=== PATIENT | male | born 1935 | race Caucasian/White ===

== ENCOUNTER → 2016-05-25 | Outpatient (CLI) | payer OTHER, MEDICARE ==
[~2016-05-25] MED LIST: CARB10TA PO; CMD5 PO; CYAN10002 PO; ISOS30TA35 PO; LISI-461 PO; LVNIS80 SQ; METO25TA56 PO; PRAV20TA PO
[2016-05-25 10:34] LABS: INR 2.2 (0.9-1.1)
== END | disposition home or self-care (01) ==
LOC: C.LABSPEC 09:59
PROVIDERS: ATTEND Internal Medicine Cardiovascular Disease
DX: I82.409 Acute embolism and thrombosis of unspecified deep veins of unspecified lower extremity (principal)

== ENCOUNTER → 2016-06-23 | Outpatient (CLI) | payer OTHER, MEDICARE ==
[2016-06-23 10:17] LABS: INR 2.3 (0.9-1.1); PROTHROMBIN TIME (PATIENT) 25.6 SECONDS (9.0-12.0)
== END | disposition home or self-care (01) ==
LOC: C.LABVPSUW 09:39
PROVIDERS: ATTEND Internal Medicine Cardiovascular Disease
DX: I82.409 Acute embolism and thrombosis of unspecified deep veins of unspecified lower extremity (principal)

== ENCOUNTER → 2016-07-21 | Outpatient (CLI) | payer OTHER, MEDICARE ==
[2016-07-21 10:49] LABS: INR 2.6 (0.9-1.1); PROTHROMBIN TIME (PATIENT) 28.4 SECONDS (9.0-12.0)
--- NOTE | 2016-07-23 13:29 | CODING QUERY NO DIAGNOSIS ---
: 1935 TREATMENT RENDERED WITHOUT A DIAGNOSIS To promote full compliance with coding requirements relating to patient care, physician participation is requested in all cases of certified orthotic fitter uncertainty. Please assist us with providing a diagnosis/symptom for the test(s) below: A diagnosis/symptom was not documented on your Order. A valid diagnosis/symptom is required to bill all insurances. Please remember that we are unable to code a diagnosis of rule out, probable, possible, questionable, or suspected. Tests that require a diagnosis: DOS: 07/21/16 * Prothrombin Time Profile DIAGNOSIS: Provider Signature: Date: Thank you [facility] Once completed, please kindly fax back to [phone] For questions please call [phone]
== END | disposition home or self-care (01) ==
LOC: C.LABVPSUW 10:20
PROVIDERS: ATTEND Internal Medicine Cardiovascular Disease
DX: I82.409 Acute embolism and thrombosis of unspecified deep veins of unspecified lower extremity (principal)

== ENCOUNTER → 2016-08-23 | Outpatient (CLI) | payer OTHER, MEDICARE ==
[2016-08-23 09:52] LABS: INR 2.5 (0.9-1.1); PROTHROMBIN TIME (PATIENT) 27.8 SECONDS (9.0-12.0)
== END | disposition home or self-care (01) ==
LOC: C.LABVPSUW 09:08
PROVIDERS: ATTEND Internal Medicine Cardiovascular Disease
DX: I82.409 Acute embolism and thrombosis of unspecified deep veins of unspecified lower extremity (principal)

== ENCOUNTER → 2016-09-20 | Outpatient (CLI) | payer OTHER, MEDICARE ==
[2016-09-20 11:38] LABS: INR 2.6 (0.9-1.1); PROTHROMBIN TIME (PATIENT) 28.8 SECONDS (9.0-12.0)
== END ==
LOC: C.LABVPSUW 10:46
PROVIDERS: ATTEND Internal Medicine Cardiovascular Disease
DX: I82.409 Acute embolism and thrombosis of unspecified deep veins of unspecified lower extremity (principal)

== ENCOUNTER → 2016-10-21 | Outpatient (CLI) | payer OTHER, MEDICARE ==
[2016-10-21 10:56] LABS: INR 2.5 (0.9-1.1); PROTHROMBIN TIME (PATIENT) 27.4 SECONDS (9.0-12.0)
== END | disposition home or self-care (01) ==
LOC: C.LABVPSUW 10:08
PROVIDERS: ATTEND Internal Medicine Cardiovascular Disease
DX: I82.409 Acute embolism and thrombosis of unspecified deep veins of unspecified lower extremity (principal)

== ENCOUNTER → 2016-11-22 | Outpatient (CLI) | payer OTHER, MEDICARE ==
[2016-11-22 10:00] LABS: HEMATOCRIT 35.5 % (42-52); MEAN CELL VOLUME 103.5 fL (80-100); MEAN CORPUSCULAR HEMOGLOBIN 35.6 pg (25-34); MEAN CORPUSCULAR HGB CONC 34.4 g/dl (32-36); MEAN PLATELET VOLUME 10.5 fL (7.4-10.4); PLATELET COUNT 106 K/uL (130-400); RED BLOOD COUNT 3.43 M/uL (4.7-6.1); WHITE BLOOD COUNT 3.74 K/uL (4.8-10.8)
[2016-11-22 10:06] LABS: INR 2.2 (0.9-1.1); PROTHROMBIN TIME (PATIENT) 24.7 SECONDS (9.0-12.0)
== END | disposition home or self-care (01) ==
LOC: C.LABVPSUW 09:24
PROVIDERS: ATTEND Internal Medicine Cardiovascular Disease
DX: I25.10 Atherosclerotic heart disease of native coronary artery without angina pectoris (principal); E78.5 Hyperlipidemia, unspecified; I10 Essential (primary) hypertension; I82.409 Acute embolism and thrombosis of unspecified deep veins of unspecified lower extremity

== ENCOUNTER → 2017-01-10 | Outpatient (CLI) | payer OTHER, MEDICARE ==
[2017-01-10 10:45] LABS: INR 2.1 (0.9-1.1); PROTHROMBIN TIME (PATIENT) 23.5 SECONDS (9.0-12.0)
--- NOTE | 2017-01-21 08:54 | CODING QUERY NO DIAGNOSIS ---
TREATMENT RENDERED WITHOUT A DIAGNOSIS : 1935 To promote full compliance with coding requirements relating to patient care, physician participation is requested in all cases of cotton classer aide uncertainty. Please assist us with providing a diagnosis/symptom for the test(s) below: A diagnosis/symptom was not documented on your Order. A valid diagnosis/symptom is required to bill all insurances. Please remember that we are unable to code a diagnosis of rule out, probable, possible, questionable, or suspected. Tests that require a diagnosis: DOS: 01/10/17 * PROTHROMBIN TIME PRO DIAGNOSIS: Provider Signature: Date: Thank you Pauline Ott [employer] Once completed, please kindly fax back to [phone] For questions please call [phone]
== END | disposition home or self-care (01) ==
LOC: C.LABVPSUW 09:54
PROVIDERS: ATTEND Internal Medicine Cardiovascular Disease
DX: I82.409 Acute embolism and thrombosis of unspecified deep veins of unspecified lower extremity (principal)

== ENCOUNTER → 2017-03-23 | Outpatient (CLI) | payer OTHER, MEDICARE ==
[2017-03-23 11:14] LABS: INR 2.8 (0.9-1.1); PROTHROMBIN TIME (PATIENT) 31.8 SECONDS (9.0-12.0)
== END | disposition home or self-care (01) ==
LOC: C.LABVPSUW 10:33
PROVIDERS: ATTEND Internal Medicine Cardiovascular Disease
DX: Z79.01 Long term (current) use of anticoagulants (principal)

== ENCOUNTER → 2017-04-22 | Outpatient (CLI) | payer OTHER, MEDICARE ==
[2017-04-22 09:34] LABS: INR 2.4 (0.9-1.1); PROTHROMBIN TIME (PATIENT) 26.6 SECONDS (9.0-12.0)
== END | disposition home or self-care (01) ==
LOC: C.LABVPSUW 09:03
PROVIDERS: ATTEND Internal Medicine Cardiovascular Disease
DX: I82.409 Acute embolism and thrombosis of unspecified deep veins of unspecified lower extremity (principal)

== ENCOUNTER → 2017-05-24 | Outpatient (CLI) | payer OTHER, MEDICARE ==
[~2017-05-24] MED LIST changes: +ASPI81TA28 PO; +CYNI1000 INJ; +NTRGSL/4 UT; +QUET1TAB30 PO; +RIVA4.5C4 PO; +WARF2.5T8 PO; +WARF5TAB7 PO
[2017-05-24 10:13] LABS: INR 2.5 (0.9-1.1)
== END | disposition home or self-care (01) ==
LOC: C.LABSPEC 09:23
PROVIDERS: ATTEND Internal Medicine Cardiovascular Disease
DX: I82.409 Acute embolism and thrombosis of unspecified deep veins of unspecified lower extremity (principal)

== ENCOUNTER → 2017-06-23 | Outpatient (CLI) | payer OTHER, MEDICARE ==
[~2017-06-23] MED LIST changes: -ASPI81TA28 PO; -CYNI1000 INJ; -NTRGSL/4 UT; -QUET1TAB30 PO; -RIVA4.5C4 PO; -WARF2.5T8 PO; -WARF5TAB7 PO
[2017-06-23 09:27] LABS: BLOOD UREA NITROGEN 20 mg/dl (7-18); CARBON DIOXIDE 23 mmol/L (21-32); CREATININE 1.48 mg/dl (0.60-1.40); GLUCOSE 88 mg/dl (70-99); POTASSIUM 4.2 mmol/L (3.5-5.1); SODIUM 141 mmol/L (136-145)
[2017-06-23 09:34] LABS: INR 2.1 (0.9-1.1)
== END | disposition home or self-care (01) ==
LOC: C.LABVPSUW 09:01
PROVIDERS: ATTEND Internal Medicine Cardiovascular Disease
DX: I82.409 Acute embolism and thrombosis of unspecified deep veins of unspecified lower extremity (principal); E78.5 Hyperlipidemia, unspecified; I10 Essential (primary) hypertension; I25.10 Atherosclerotic heart disease of native coronary artery without angina pectoris; N28.9 Disorder of kidney and ureter, unspecified

== ENCOUNTER → 2017-07-22 | Outpatient (CLI) | payer OTHER, MEDICARE ==
[2017-07-22 08:59] LABS: INR 2.1 (0.9-1.1)
== END | disposition home or self-care (01) ==
LOC: C.LABVPSUW 08:41
PROVIDERS: ATTEND Internal Medicine Critical Care Medicine
DX: I82.409 Acute embolism and thrombosis of unspecified deep veins of unspecified lower extremity (principal)

== ENCOUNTER → 2017-08-16 | Outpatient (CLI) | payer OTHER, MEDICARE ==
[~2017-08-16] MED LIST changes: +ASPI81TA28 PO; +CYNI1000 INJ; +QUET1TAB30 PO; +RIVA4.5C4 PO
[2017-08-16 09:30] LABS: HEMATOCRIT 35.1 % (42-52); HEMOGLOBIN 12.8 g/dL (14.0-18.0)
[2017-08-16 09:39] LABS: INR 2.1 (0.9-1.1)
== END ==
LOC: C.LABVPSUW 09:11
PROVIDERS: ATTEND Internal Medicine Critical Care Medicine
DX: I82.409 Acute embolism and thrombosis of unspecified deep veins of unspecified lower extremity (principal)

== ENCOUNTER → 2017-08-31 | Day surgery (SDC) | payer OTHER, MEDICARE ==
[2017-08-18 09:35] VITALS: BMI 27.0
--- NOTE | 2017-08-18 10:14 | PAT Medication Instructions ---
Service Date Aug 18, 2017. Current Home Medication List Aspirin (Aspirin Ec), 81 MG PO QAM Cyanocobalamin (Cyanocobalamin), 100 MG INJ MONTHLY Quetiapine Fumarate (Seroquel), 50 MG PO HS Rivastigmine Tartrate (Rivastigmine Tartrate), 1 TAB PO BID Medication Instructions For Your Scheduled Surgery - Check with surgeon and contract consultant for instructions: Aspirin (Aspirin Ec), 81 MG PO QAM - Continue as directed: Cyanocobalamin (Cyanocobalamin), 100 MG INJ MONTHLY - Take the following medications the morning of surgery with a sip of water: Rivastigmine Tartrate (Rivastigmine Tartrate), 1 TAB PO BID - Take the following medications as scheduled the night before surgery: Quetiapine Fumarate (Seroquel), 50 MG PO HS Rivastigmine Tartrate (Rivastigmine Tartrate), 1 TAB PO BID If you have any questions please call us at [phone] or [phone] or [phone]
[2017-08-18 11:12] LABS: BASO % 1.1 %; BASO ABS # 0.04 K/uL (0-0.2); EOS % 5.1 %; EOS ABS # 0.19 K/uL (0-0.5); HEMATOCRIT 35.6 % (42-52); HEMOGLOBIN 12.6 g/dL (14.0-18.0); LYMPH % 34.6 %; MEAN CELL VOLUME 102.9 fL (80-100); MEAN CORPUSCULAR HEMOGLOBIN 36.4 pg (25-34); MEAN CORPUSCULAR HGB CONC 35.4 g/dl (32-36); MEAN PLATELET VOLUME 10.2 fL (7.4-10.4); MONO % 13.3 %; NEUT % 45.9 %; NEUT ABS # 1.73 K/uL (1.4-6.5); PLATELET COUNT 126 K/uL (130-400); RED CELL DISTRIBUTION WIDTH CV 13.1 % (11.5-14.5); RED CELL DISTRIBUTION WIDTH SD 49.3 fL (36.4-46.3); WHITE BLOOD COUNT 3.76 K/uL (4.8-10.8)
[2017-08-18 11:22] LABS: CREATININE 1.43 mg/dl (0.60-1.40); POTASSIUM 4.2 mmol/L (3.5-5.1)
[~2017-08-31] VITALS: Ht 177.8 cm; Wt 85.5 kg
[~2017-08-31] MED LIST changes: +ACETAMINOPHEN 500 MG TAB PO PRN; +ATROPINE SULFATE 0.1 MG/ML 5ML SYR IV PRN; -CARB10TA PO; -CMD5 PO; -CYAN10002 PO; +EpHEDrine SULFATE INJ 50 MG/ML AMP IV PRN; +FENTANYL CITRATE INJ 50 MCG/1 ML 2 ML VIAL IV PRN; +FENTANYL CITRATE INJ 50 MCG/1 ML 2 ML VIAL ONE; -ISOS30TA35 PO; +LACTATED RINGER'S 1000ML 1,000 ML IV SCH; +LIDOCAINE HCL 2% 2 ML VIAL (20MG/ML) ONE; -LISI-461 PO; -LVNIS80 SQ; -METO25TA56 PO; +NTRGSL/4 UT; +OFLOXACIN 0.3% OP SOLN 5 ML BTL ONE; +ONDANSETRON INJ 2 MG/ML 2 ML VIAL IV PRN; +ONDANSETRON INJ 2 MG/ML 2 ML VIAL ONE; -PRAV20TA PO; +PROPOFOL IV EMULSION 10 MG/ML 20 ML VIAL IV ONE; +WARF2.5T8 PO; +WARF5TAB7 PO
--- NOTE | 2017-08-31 08:21 | History & Physical Bridge Note ---
H&P Re-Evaluation Bridge Note: I have examined the patient, reviewed the History & Physical and in the interval since the performance of the History & Physical I have noted the following changes of clinical significance: No changes noted
[2017-08-31 08:30] VITALS: BP 157/75; PULSE 58; TEMP 36.6; O2SAT 99; Ht 177.8 cm; Wt 85.5 kg
--- NOTE | 2017-08-31 10:53 | [facility] Operative Report ---
Operative Report Operative Date Aug 31, 2017. Pre-Operative Diagnosis RIGHT OTITIS MEDIA WITH MIXED HEARING LOSS Post-Operative Diagnosis RIGHT OTITIS MEDIA WITH MIXED HEARING LOSS Procedure(s) Performed RIGHT MYRINGOTOMY AND T-TUBE PLACEMENT Surgeon GERARDO Estimated Blood Loss 0 Findings RIGHT SEROUS MIDDLE EAR EFFUSION I attest to the content of the Intraoperative Record and any orders documented therein. Any exceptions are noted below.
--- NOTE | 2017-08-31 10:56 | Discharge Instructions ---
Discharge Instructions Date of Service Aug 31, 2017. Admission Reason for Admission: Eustachian Tube Dysfunction, Right Serous Otitis M Discharge Discharge Diagnosis / Problem: SAME Discharge Goals Goal(s): Therapeutic intervention Activity Recommendations Activity Limitations: as noted below DRY EAR PRECAUTIONS WHILE TUBE IS IN PLACE; NO NOSE BLOWING FOR 2 WEEKS . Current Hospital Diet Patient's current hospital diet: Discharge Diet Recommended Diet: Regular Diet Procedures Procedures Performed: RIGHT MYRINGOTOMY AND T-TUBE PLACEMENT Pending Studies Studies pending at discharge: no Medical Emergencies . Who to Call and When: Medical Emergencies: If at any time you feel your situation is an emergency, please call 911 immediately. . Non-Emergent Contact Non-Emergency issues call your: Surgeon . . "Provider Documentation" section prepared by Kris Mckeon. .
--- NOTE | 2017-08-31 11:34 | OPERATIVE REPORT ---
DATE OF OPERATION: 08/31/2017 PREOPERATIVE DIAGNOSES: 1. Right chronic serous otitis media. 2. Right mixed hearing loss. POSTOPERATIVE DIAGNOSES: 1. Right chronic serous otitis media. 2. Right mixed hearing loss. PROCEDURE: Right myringotomy and T-tube placement. SURGEON: Kris Mckeon MD ANESTHESIA: General laryngeal mask airway. ESTIMATED BLOOD LOSS: Zero. FINDINGS: Right serous middle ear effusion. SPECIMENS: None. COMPLICATIONS: None. INDICATIONS: The patient is a very pleasant 82-year-old male with a history of chronic serous otitis media on the right hand side. He was undergone right myringotomy and tube placement in the past who has had redevelopment of right serous middle ear effusion, which has been unresponsive to maximal medical therapy including systemic steroids. He was found on an audiogram to have a right mixed hearing loss. The patient does have hearing aids, but his hearing aid is not helping him hear as well as it should due to the middle ear effusion. He presents for the above-mentioned procedure on an outpatient elective basis. DESCRIPTION OF PROCEDURE: After informed consent had been obtained from the patient, the patient was wheeled to the operating room and on his [facility], monitored were placed. After administration of general anesthesia via a laryngeal mask airway, the patient's head was gently turned to the left and a speculum was inserted into the right external ear canal. The operating microscope was wheeled in and used to perform the procedure. [place] suction was used to remove excess cerumen. A myringotomy knife was used to make a radial incision in the anteroinferior quadrant of the tympanic membrane and middle ear space was suctioned free of a serous middle ear effusion. A Pettit T-tube was then placed with the T-tube minister assistant. Floxin drops were instilled into the middle ear space and a cotton ball was placed into the conchal bowl. This marked the end of the case. The patient tolerated the procedure well with no apparent complications. The patient has laryngeal mask airway removed and was transferred to the recovery room in stable condition. I attest to the content of the Intraoperative Record and any orders documented therein. Any exception s are noted below.
[2017-08-31 11:45] VITALS: BP 138/70; PULSE 49; TEMP 36.4; O2SAT 98
--- NOTE | 2017-08-31 11:52 | Anesthesiology Progress Note ---
Anesthesia Post Op Note Date & Time Aug 31, 2017 at 11:52 Vital Signs Pain Intensity: 0 Vital Signs Past 12 Hours Date Time Temp Pulse Resp B/P (MAP) Pulse Ox O2 Delivery O2 Flow Rate FiO2 08/31/17 11:35 129/71 08/31/17 11:32 48 11 97 08/31/17 11:32 48 11 08/31/17 11:31 119/67 08/31/17 11:28 36.2 46 16 121/69 (88) 98 Room Air 08/31/17 11:27 49 15 08/31/17 11:27 48 15 97 08/31/17 11:26 121/69 08/31/17 11:22 48 14 97 08/31/17 11:22 48 14 08/31/17 11:20 130/65 08/31/17 11:17 47 13 08/31/17 11:17 47 13 97 08/31/17 11:16 124/66 08/31/17 11:14 49 16 96 08/31/17 11:14 50 16 08/31/17 11:11 130/74 08/31/17 11:09 47 12 100 08/31/17 11:09 48 12 08/31/17 11:06 119/61 08/31/17 11:04 45 13 08/31/17 11:04 44 13 100 08/31/17 11:00 118/62 08/31/17 10:59 45 13 08/31/17 10:59 36.1 44 12 117/61 (82) 99 Room Air 08/31/17 10:59 45 13 117/61 99 08/31/17 08:30 36.6 58 18 157/75 (102) 99 Room Air Notes Mental Status: alert / awake / arousable, participated in evaluation Pt Amnestic to Procedure: Yes Nausea / Vomiting: adequately controlled Pain: adequately controlled Airway Patency, RR, SpO2: stable & adequate BP & HR: stable & adequate Hydration State: stable & adequate Anesthetic Complications: no major complications apparent
[2017-08-31 12:15] VITALS: BP 140/65; PULSE 51; TEMP 36.5; O2SAT 100
== END | disposition home or self-care (01) ==
LOC: C.ACU 07:29
DX: H65.21 Chronic serous otitis media, right ear (principal); H90.A31 Mixed conductive and sensorineural hearing loss, unilateral, right ear with restricted hearing on the contralateral side; G20 Parkinson's disease; I25.10 Atherosclerotic heart disease of native coronary artery without angina pectoris; E78.5 Hyperlipidemia, unspecified; I10 Essential (primary) hypertension; E53.8 Deficiency of other specified B group vitamins; Z95.1 Presence of aortocoronary bypass graft; Z86.718 Personal history of other venous thrombosis and embolism; Z79.82 Long term (current) use of aspirin; Z79.01 Long term (current) use of anticoagulants

== ENCOUNTER → 2017-09-23 | Outpatient (CLI) | payer OTHER, MEDICARE ==
[~2017-09-23] MED LIST changes: -ACETAMINOPHEN 500 MG TAB PO PRN; -ATROPINE SULFATE 0.1 MG/ML 5ML SYR IV PRN; -EpHEDrine SULFATE INJ 50 MG/ML AMP IV PRN; -FENTANYL CITRATE INJ 50 MCG/1 ML 2 ML VIAL IV PRN; -FENTANYL CITRATE INJ 50 MCG/1 ML 2 ML VIAL ONE; -LACTATED RINGER'S 1000ML 1,000 ML IV SCH; -LIDOCAINE HCL 2% 2 ML VIAL (20MG/ML) ONE; -OFLOXACIN 0.3% OP SOLN 5 ML BTL ONE; -ONDANSETRON INJ 2 MG/ML 2 ML VIAL IV PRN; -ONDANSETRON INJ 2 MG/ML 2 ML VIAL ONE; -PROPOFOL IV EMULSION 10 MG/ML 20 ML VIAL IV ONE; -WARF2.5T8 PO; -WARF5TAB7 PO
[2017-09-23 10:19] LABS: INR 1.9 (0.9-1.1)
== END | disposition home or self-care (01) ==
LOC: C.LABVPSUW 09:00
PROVIDERS: ATTEND Internal Medicine Critical Care Medicine
DX: I82.409 Acute embolism and thrombosis of unspecified deep veins of unspecified lower extremity (principal)